=== PATIENT | male | born 1965 | race Caucasian/White ===

== ENCOUNTER 2019-01-21 05:06 | Emergency (ER) | payer BC ==
[~2019-01-21] VITALS: Ht 182.9 cm; Wt 95.3 kg
[2019-01-21] MEDS ORDERED: KETO10TA2 PO (13:26)
== END 2019-01-21 17:11 | disposition home or self-care (01) ==
LOC: ER 05:06 → EMR PED 05:14 → ER 05:14
DX: R10.31 Right lower quadrant pain (principal); N20.0 Calculus of kidney